=== PATIENT | male | born 1945 | race Caucasian/White ===

== ENCOUNTER → 2019-06-08 13:14 | Outpatient (CLI) | payer MEDICARE, OTHER, SELFPAY | PROVIDERS: Visit Provider Family Medicine | DX: T66.XXXA Radiation sickness, unspecified, initial encounter (principal); M27.8 Other specified diseases of jaws | CPT/HCPCS: 99203; 99212 ==

== ENCOUNTER → 2019-06-08 14:51 | Outpatient (CLI) | payer MEDICARE, OTHER, SELFPAY | PROVIDERS: Family Provider Physician Assistant; PCP Physician Assistant; Visit Provider Family Medicine | DX: Z01.818 Encounter for other preprocedural examination (principal) ==

== ENCOUNTER → 2019-06-08 15:14 | Outpatient (CLI) | payer MEDICARE, OTHER, SELFPAY ==
--- NOTE | 2019-06-08 | DI.RAD.S_ITS ---
PROCEDURE: XR CHEST 2V INDICATIONS: PRE PROCEDURE XRAY/ CHEST TECHNIQUE: 2 views of the chest were acquired. COMPARISON: None. FINDINGS: Surgical changes and devices: None. Lungs and pleura: Lungs are clear. No pleural effusions or pneumothorax. Mediastinum: Mediastinal contours are normal. Heart size is normal. Bones and chest wall: No suspicious bony abnormalities. Soft tissues appear unremarkable. IMPRESSION: No acute disease Dictated by: Maged Mancilla M.D. on 06/08/2019 at 17:26 Approved by: Maged Mancilla M.D. on 06/08/2019 at 17:27
== END ==
PROVIDERS: Family Provider Physician Assistant; PCP Physician Assistant; Visit Provider Family Medicine
DX: Z01.818 Encounter for other preprocedural examination (principal)
CPT/HCPCS: 71046

== ENCOUNTER → 2019-07-13 10:17 | Outpatient (CLI) | payer MEDICARE, OTHER, SELFPAY | PROVIDERS: Family Provider Physician Assistant; PCP Physician Assistant; Visit Provider Family Medicine | DX: T66.XXXA Radiation sickness, unspecified, initial encounter (principal); M27.8 Other specified diseases of jaws | CPT/HCPCS: 99183; G0277 ==

== ENCOUNTER → 2019-07-17 10:23 | Outpatient (CLI) | payer MEDICARE, OTHER, SELFPAY | PROVIDERS: Family Provider Physician Assistant; PCP Physician Assistant; Visit Provider Family Medicine | DX: T66.XXXA Radiation sickness, unspecified, initial encounter (principal); M27.8 Other specified diseases of jaws | CPT/HCPCS: 99183; G0277 ==

== ENCOUNTER → 2019-07-18 13:12 | Outpatient (CLI) | payer MEDICARE, OTHER, SELFPAY | PROVIDERS: Family Provider Physician Assistant; PCP Physician Assistant; Visit Provider Family Medicine | DX: T66.XXXA Radiation sickness, unspecified, initial encounter (principal); M27.8 Other specified diseases of jaws | CPT/HCPCS: 99183; G0277 ==

== ENCOUNTER → 2019-07-19 13:08 | Outpatient (CLI) | payer MEDICARE, OTHER, SELFPAY | PROVIDERS: Family Provider Physician Assistant; PCP Physician Assistant; Visit Provider Family Medicine | DX: T66.XXXA Radiation sickness, unspecified, initial encounter (principal); M27.8 Other specified diseases of jaws | CPT/HCPCS: 99183; G0277 ==

== ENCOUNTER → 2019-07-20 10:21 | Outpatient (CLI) | payer MEDICARE, OTHER, SELFPAY | PROVIDERS: Family Provider Physician Assistant; PCP Physician Assistant; Visit Provider Family Medicine | DX: T66.XXXA Radiation sickness, unspecified, initial encounter (principal); M27.8 Other specified diseases of jaws | CPT/HCPCS: 99183; G0277 ==

== ENCOUNTER → 2019-07-23 14:38 | Outpatient (CLI) | payer MEDICARE, OTHER, SELFPAY | PROVIDERS: Family Provider Physician Assistant; PCP Physician Assistant; Visit Provider Family Medicine | DX: T66.XXXA Radiation sickness, unspecified, initial encounter (principal); M27.8 Other specified diseases of jaws | CPT/HCPCS: 99183; G0277 ==

== ENCOUNTER → 2019-07-24 10:31 | Outpatient (CLI) | payer MEDICARE, OTHER, SELFPAY | PROVIDERS: Family Provider Physician Assistant; PCP Physician Assistant; Visit Provider Family Medicine | DX: T66.XXXA Radiation sickness, unspecified, initial encounter (principal); M27.8 Other specified diseases of jaws | CPT/HCPCS: 99183; G0277 ==

== ENCOUNTER → 2019-07-25 10:31 | Outpatient (CLI) | payer MEDICARE, OTHER, SELFPAY | PROVIDERS: Family Provider Physician Assistant; PCP Physician Assistant; Visit Provider Family Medicine | DX: T66.XXXA Radiation sickness, unspecified, initial encounter (principal); M27.8 Other specified diseases of jaws | CPT/HCPCS: 99183; G0277 ==

== ENCOUNTER → 2019-07-26 10:28 | Outpatient (CLI) | payer MEDICARE, OTHER, SELFPAY | PROVIDERS: Family Provider Physician Assistant; PCP Physician Assistant; Visit Provider Family Medicine | DX: T66.XXXA Radiation sickness, unspecified, initial encounter (principal); M27.8 Other specified diseases of jaws | CPT/HCPCS: 99183; G0277 ==

== ENCOUNTER → 2019-07-27 10:22 | Outpatient (CLI) | payer MEDICARE, OTHER, SELFPAY | PROVIDERS: Family Provider Physician Assistant; PCP Physician Assistant; Visit Provider Family Medicine | DX: T66.XXXA Radiation sickness, unspecified, initial encounter (principal); M27.8 Other specified diseases of jaws | CPT/HCPCS: 99183; G0277 ==

== ENCOUNTER → 2019-07-30 11:27 | Outpatient (CLI) | payer MEDICARE, OTHER, SELFPAY | PROVIDERS: Family Provider Physician Assistant; PCP Physician Assistant; Visit Provider Family Medicine | DX: T66.XXXA Radiation sickness, unspecified, initial encounter (principal); M27.8 Other specified diseases of jaws | CPT/HCPCS: 99183; G0277 ==

== ENCOUNTER → 2019-07-31 16:40 | Outpatient (CLI) | payer MEDICARE, OTHER, SELFPAY | PROVIDERS: Family Provider Physician Assistant; PCP Physician Assistant; Visit Provider Family Medicine | DX: T66.XXXA Radiation sickness, unspecified, initial encounter (principal); M27.8 Other specified diseases of jaws | CPT/HCPCS: 99183; G0277 ==

== ENCOUNTER → 2019-08-01 10:42 | Outpatient (CLI) | payer MEDICARE, OTHER, SELFPAY | PROVIDERS: Family Provider Physician Assistant; PCP Physician Assistant; Visit Provider Family Medicine | DX: T66.XXXA Radiation sickness, unspecified, initial encounter (principal); M27.8 Other specified diseases of jaws | CPT/HCPCS: 99183; G0277 ==

== ENCOUNTER → 2019-08-02 11:06 | Outpatient (CLI) | payer MEDICARE, OTHER, SELFPAY | PROVIDERS: Family Provider Physician Assistant; PCP Physician Assistant; Visit Provider Family Medicine | DX: T66.XXXA Radiation sickness, unspecified, initial encounter (principal); M27.8 Other specified diseases of jaws | CPT/HCPCS: 99183; G0277 ==

== ENCOUNTER → 2019-08-03 11:46 | Outpatient (CLI) | payer MEDICARE, OTHER, SELFPAY | PROVIDERS: Family Provider Physician Assistant; PCP Physician Assistant; Visit Provider Family Medicine | DX: T66.XXXA Radiation sickness, unspecified, initial encounter (principal); M27.8 Other specified diseases of jaws | CPT/HCPCS: 99183; G0277 ==

== ENCOUNTER → 2019-08-06 11:38 | Outpatient (CLI) | payer MEDICARE, OTHER, SELFPAY | PROVIDERS: Family Provider Physician Assistant; PCP Physician Assistant; Visit Provider Family Medicine | DX: T66.XXXA Radiation sickness, unspecified, initial encounter (principal); M27.8 Other specified diseases of jaws | CPT/HCPCS: 99183; G0277 ==

== ENCOUNTER → 2019-08-07 15:05 | Outpatient (CLI) | payer MEDICARE, OTHER, SELFPAY | PROVIDERS: Family Provider Physician Assistant; PCP Physician Assistant; Visit Provider Family Medicine | DX: M27.8 Other specified diseases of jaws (principal) | CPT/HCPCS: 99183; G0277 ==

== ENCOUNTER → 2019-08-08 10:26 | Outpatient (CLI) | payer MEDICARE, OTHER, SELFPAY | PROVIDERS: Family Provider Physician Assistant; PCP Physician Assistant; Visit Provider Family Medicine | DX: M27.8 Other specified diseases of jaws (principal); T66.XXXA Radiation sickness, unspecified, initial encounter | CPT/HCPCS: 99183; G0277 ==

== ENCOUNTER → 2019-08-13 10:19 | Outpatient (CLI) | payer MEDICARE, OTHER, SELFPAY | PROVIDERS: Family Provider Physician Assistant; PCP Physician Assistant; Visit Provider Family Medicine | DX: M27.8 Other specified diseases of jaws (principal); T66.XXXA Radiation sickness, unspecified, initial encounter | CPT/HCPCS: 99183; G0277 ==

== ENCOUNTER → 2019-08-14 10:43 | Outpatient (CLI) | payer MEDICARE, OTHER, SELFPAY | PROVIDERS: Family Provider Physician Assistant; PCP Physician Assistant; Visit Provider Family Medicine | DX: M27.8 Other specified diseases of jaws (principal); T66.XXXA Radiation sickness, unspecified, initial encounter | CPT/HCPCS: 99183; G0277 ==

== ENCOUNTER → 2019-08-21 09:08 | Outpatient (CLI) | payer MEDICARE, OTHER, SELFPAY | PROVIDERS: Family Provider Physician Assistant; PCP Physician Assistant; Visit Provider Family Medicine | DX: M27.8 Other specified diseases of jaws (principal); T66.XXXA Radiation sickness, unspecified, initial encounter | CPT/HCPCS: 99183; G0277 ==

== ENCOUNTER → 2019-08-22 09:01 | Outpatient (CLI) | payer MEDICARE, OTHER, SELFPAY | PROVIDERS: Family Provider Physician Assistant; PCP Physician Assistant; Visit Provider Family Medicine | DX: M27.8 Other specified diseases of jaws (principal); T66.XXXA Radiation sickness, unspecified, initial encounter | CPT/HCPCS: 99183; G0277 ==

== ENCOUNTER → 2019-08-23 08:55 | Outpatient (CLI) | payer MEDICARE, OTHER, SELFPAY | PROVIDERS: Family Provider Physician Assistant; PCP Physician Assistant; Visit Provider Family Medicine | DX: M27.8 Other specified diseases of jaws (principal); T66.XXXA Radiation sickness, unspecified, initial encounter | CPT/HCPCS: 99183; G0277 ==

== ENCOUNTER → 2019-08-24 09:19 | Outpatient (CLI) | payer MEDICARE, OTHER, SELFPAY | PROVIDERS: Family Provider Physician Assistant; PCP Physician Assistant; Visit Provider Family Medicine | DX: M27.8 Other specified diseases of jaws (principal); T66.XXXA Radiation sickness, unspecified, initial encounter | CPT/HCPCS: 99183; G0277 ==

== ENCOUNTER → 2019-08-28 09:08 | Outpatient (CLI) | payer MEDICARE, OTHER, SELFPAY | PROVIDERS: Family Provider Physician Assistant; PCP Physician Assistant; Visit Provider Family Medicine | DX: M27.8 Other specified diseases of jaws (principal); T66.XXXA Radiation sickness, unspecified, initial encounter | CPT/HCPCS: 99183; G0277 ==

== ENCOUNTER → 2019-08-29 09:20 | Outpatient (CLI) | payer MEDICARE, OTHER, SELFPAY | PROVIDERS: Family Provider Physician Assistant; PCP Physician Assistant; Visit Provider Family Medicine | DX: M27.8 Other specified diseases of jaws (principal); T66.XXXA Radiation sickness, unspecified, initial encounter | CPT/HCPCS: 99183; G0277 ==

== ENCOUNTER → 2019-08-30 08:56 | Outpatient (CLI) | payer MEDICARE, OTHER, SELFPAY | PROVIDERS: Family Provider Physician Assistant; PCP Physician Assistant; Visit Provider Family Medicine | DX: M27.8 Other specified diseases of jaws (principal); T66.XXXA Radiation sickness, unspecified, initial encounter | CPT/HCPCS: 99183; G0277 ==

== ENCOUNTER → 2019-08-31 09:46 | Outpatient (CLI) | payer MEDICARE, OTHER, SELFPAY | PROVIDERS: Family Provider Physician Assistant; PCP Physician Assistant; Visit Provider Family Medicine | DX: M27.8 Other specified diseases of jaws (principal); T66.XXXA Radiation sickness, unspecified, initial encounter | CPT/HCPCS: 99183; G0277 ==

== ENCOUNTER → 2019-09-03 09:45 | Outpatient (CLI) | payer MEDICARE, OTHER, SELFPAY | PROVIDERS: Family Provider Physician Assistant; PCP Physician Assistant; Visit Provider Family Medicine | DX: M27.8 Other specified diseases of jaws (principal); T66.XXXA Radiation sickness, unspecified, initial encounter | CPT/HCPCS: 99183; G0277 ==

== ENCOUNTER → 2019-09-04 09:38 | Outpatient (CLI) | payer MEDICARE, OTHER, SELFPAY | PROVIDERS: Family Provider Physician Assistant; PCP Physician Assistant; Visit Provider Family Medicine | DX: M27.8 Other specified diseases of jaws (principal); T66.XXXA Radiation sickness, unspecified, initial encounter | CPT/HCPCS: 99183; G0277 ==